=== PATIENT | male | born 1995 | race Native Hawaiian/Other Pacific Islander ===

== ENCOUNTER 2023-09-10 20:23 | Emergency (ER) | payer OTHER ==
[~2023-09-10] VITALS: Ht 180.3 cm; Wt 61.2 kg
[2023-09-10] MEDS ORDERED: CLOT15CR5 TP (21:12)
[2023-09-10 21:18] VITALS: BP 137/91; O2SAT 98
== END 2023-09-10 21:18 | disposition home or self-care (01) ==
LOC: ER 20:24
DX: B35.6 Tinea cruris (principal); R21 Rash and other nonspecific skin eruption; Z79.899 Other long term (current) drug therapy; Z60.2 Problems related to living alone
CPT/HCPCS: A4606; A4663